=== PATIENT | female | born 2000 | race American Indian/Alaskan Native ===

== ENCOUNTER 2018-08-18 17:24 | Outpatient (CLI) | payer OTHER ==
[2018-08-18] MEDS ORDERED: OBSTETRIX DHA1 EACH PO (17:48)
[2018-08-18] MEDS ORDERED: IRON236 MG PO (17:48)
== END 2018-08-19 10:48 | disposition home or self-care (01) ==
LOC: OBS/DEL 17:24
DX: O26.893 Other specified pregnancy related conditions, third trimester (principal); R10.2 Pelvic and perineal pain; Z34.03 Encounter for supervision of normal first pregnancy, third trimester

== ENCOUNTER 2018-09-09 16:44 | Outpatient (CLI) | payer OTHER ==
[~2018-09-09 16:44] MED LIST: IRON236 MG PO; OBSTETRIX DHA1 EACH PO
== END 2018-09-10 21:37 | disposition home or self-care (01) ==
LOC: OBS/DEL 16:44
DX: O12.13 Gestational proteinuria, third trimester (principal); O26.893 Other specified pregnancy related conditions, third trimester; R81 Glycosuria; Z34.03 Encounter for supervision of normal first pregnancy, third trimester

== ENCOUNTER 2018-09-29 14:19 | Inpatient (IN) | payer OTHER ==
[~2018-09-29] VITALS: Ht 167.6 cm; Wt 91.6 kg
== END 2018-10-01 13:22 | disposition home or self-care (01) | DRG 833 ==
LOC: OBS/DEL 14:19 → LDR 09-30 10:37
PROVIDERS: ADMIT Obstetrics & Gynecology
PROC: 4A0HXFZ Measurement of Products of Conception, Cardiac Rhythm, External Approach (ICD-10-PCS; principal; 2018-09-30)
DX: O60.03 Preterm labor without delivery, third trimester (principal); O99.013 Anemia complicating pregnancy, third trimester; Z3A.35 35 weeks gestation of pregnancy

== ENCOUNTER 2018-10-20 23:18 | Inpatient (IN) | payer OTHER ==
[~2018-10-20] VITALS: Ht 167.6 cm; Wt 92.1 kg
[2018-10-22] MEDS ORDERED: PRENATAL VITAM1 EAC7 PO (08:07)
== END 2018-10-24 12:04 | disposition home or self-care (01) | DRG 807 ==
LOC: OBS/DEL 23:18 → LDR 10-21 21:05 → OB/GYN 10-22 19:23
PROVIDERS: ADMIT Obstetrics & Gynecology
PROC: 4A1HXCZ Monitoring of Products of Conception, Cardiac Rate, External Approach (ICD-10-PCS; 2018-10-21)
PROC: 10E0XZZ Delivery of Products of Conception, External Approach (ICD-10-PCS; principal; 2018-10-22)
PROC: 10907ZC Drainage of Amniotic Fluid, Therapeutic from Products of Conception, Via Natural or Artificial Opening (ICD-10-PCS; 2018-10-22)
PROC: 3E033VJ Introduction of Other Hormone into Peripheral Vein, Percutaneous Approach (ICD-10-PCS; 2018-10-22)
DX: O80 Encounter for full-term uncomplicated delivery (principal); Z37.0 Single live birth; Z3A.38 38 weeks gestation of pregnancy